=== PATIENT | female | born 1970 | race African-American/Black ===

== ENCOUNTER 2022-08-15 11:37 | Inpatient (IN) | payer MEDICARE, MEDICAID ==
[~2022-08-15] VITALS: Ht 167.6 cm; Wt 74.0 kg
[2022-08-15] VITALS (11 sets, daily range): BP systolic 82–223; BP diastolic 47–73
[~2022-08-15 11:37] MED LIST: ASPI81CH43 PO; CALC0.25 PO; CALC1TAB46 PO; CARV12.544 PO; NIFE10CA3 PO
[2022-08-15 12:33] LABS: Hemoglobin 8.9 g/dL (12.2-16.2)
[2022-08-15 12:35] LABS: Hematocrit 28.2 % (36.0-46.0); Mean Corpuscular Hemoglobin 25.6 pg (28.0-32.0); Mean Corpuscular Hgb Conc. 31.6 g/dL (32.0-36.0); Red Blood Cells 3.48 10^6/uL (4.0-5.20); Red Cell Distribution Width 19.4 % (11.8-14.3); White Blood Cell 2.3 10^3/uL (4.4-10.8)
[2022-08-15 12:40] LABS: Basophils % (manual) 0 (0.0-2.0); Blast Cells 0; Monocytes % (manual) 0 (0-12); Myelocytes % 0; Promyelocytes % 0; Reactive Lymphocytes 0
[2022-08-15 12:53] LABS: Lactic Acid w/Reflex 4.3 mmol/L (0.4-2.0)
[2022-08-15 13:10] LABS: Band Neutrophils % (manual) 5; Eosinophils % (manual) 2 (0-7); Lymphocytes % (manual) 5 (10.0-50.0); Metamyelocytes % 3
[2022-08-15] MEDS ORDERED: MORPHINE SULFATE INJ 2 MG/ml SYRG IV ONE (13:15)
[2022-08-15] MEDS ORDERED: ONDANSETRON HCL 4 MG/2 ML VIAL IV ONE (13:15)
[2022-08-15] MEDS ORDERED: DEXTROSE 10% 250 ML IV ONE ×2 (13:24→15:43)
[2022-08-15 13:45] LABS: Urine Bacteria FEW /hpf (None Seen); Urine Blood TRACE /uL (Negative); Urine Specific Gravity 1.016 (1.001-1.035); Urine WBC 12 /hpf (0 - 5)
[2022-08-15 13:53] LABS: Calcium 6.6 mg/dL (8.5-10.1)
[2022-08-15 13:59] LABS: Albumin 1.4 g/dL (3.4-5.0); BUN/Creatinine Ratio 14.4 (10.0-20.0); Bilirubin, Total 0.4 mg/dL (0.2-1.0); Magnesium 1.8 mg/dL (1.6-2.6); Total Protein 4.8 g/dL (6.4-8.2)
[2022-08-15 14:27] LABS: Potassium 5.7 mmol/L (3.5-5.1)
[2022-08-15] MEDS ORDERED: SODIUM BICARBONATE 8.4 % INJ 50ML VIAL IV ONE ×4 (14:45→22:45)
[2022-08-15] MEDS ORDERED: CALCIUM GLUC 1,000mg/50ml-NS 50 ML IV ONE ×3 (14:45→23:35)
[2022-08-15] MEDS ORDERED: DEXTROSE 10% 250 ML Bag IV ONE (15:45)
[2022-08-15] MEDS ORDERED: METOPROLOL SUCCINATE XL 50 MG TAB PO ONE (16:15)
[2022-08-15] MEDS ORDERED: methylPREDNISolone SOD SUCC 125 MG/2 ML VL IV ONE (16:15)
[2022-08-15] MEDS ORDERED: ALPRAZolam 0.25 MG TAB PO ONE (16:15)
[2022-08-15] MEDS ORDERED: MORPHINE SULFATE INJ 2 MG/ml SYRG IV PRN (16:30)
[2022-08-15] MEDS ORDERED: DEXTROSE (50%) 50ML SYRG IV PRN (16:30)
[2022-08-15] MEDS ORDERED: CEFEPIME 1GM/ 50ML 50 ML IV ONE (16:30)
[2022-08-15] MEDS ORDERED: NITROGLYCERIN 0.4 MG SL TAB SL PRN (16:30)
[2022-08-15] MEDS ORDERED: ALBUTEROL SULF 2.5 MG/0.5ML(0.5%) NEB SOLN NEB PRN (16:45)
[2022-08-15] MEDS ORDERED: VANCOMYCIN PER PHARMACY 0 MG IV SCH (17:00)
[2022-08-15] MEDS ORDERED: DEXTROSE 10% 1,000 ML IV ONE (17:45)
[2022-08-15] MEDS: ACCU-CHEK COMFORT CURVE STRIP VI SCH ×3 (18:00→23:05)
[2022-08-15] MEDS ORDERED: VANCOMYCIN 750mg/250ml 250 ML IV ONE (18:00)
[2022-08-15] MEDS: AZTREONAM 1 GM in D5W 5% 50 ML IV SCH (18:17)
[2022-08-15] MEDS: ALBUTEROL SULF 2.5 MG/0.5ML(0.5%) NEB SOLN NEB SCH ×2 (18:21→23:09)
[2022-08-15] MEDS: IPRATROPIUM BROM 0.5 MG/2.5ML INH SOL NEB SCH ×2 (18:22→23:09)
[2022-08-15 19:01] LABS: Hematocrit 25.1 % (36.0-46.0); Hemoglobin 8.2 g/dL (12.2-16.2)
[2022-08-15 19:02] LABS: Mean Corpuscular Hemoglobin 25.4 pg (28.0-32.0); Mean Corpuscular Hgb Conc. 32.8 g/dL (32.0-36.0); Mean Corpuscular Volume 77.3 fL (80.0-100.0); Red Blood Cells 3.24 10^6/uL (4.0-5.20); Red Cell Distribution Width 18.5 % (11.8-14.3)
[2022-08-15 19:20] LABS: BUN/Creatinine Ratio 14.9 (10.0-20.0); Calcium 6.4 mg/dL (8.5-10.1); Potassium 5.5 mmol/L (3.5-5.1); White Blood Cell 1.9 10^3/uL (4.4-10.8)
[2022-08-15 19:22] LABS: Basophils % (manual) 0 (0.0-2.0); Eosinophils % (manual) 0 (0-7); Lactic Acid w/Reflex 6.1 mmol/L (0.4-2.0); Promyelocytes % 0; Reactive Lymphocytes 0
[2022-08-15] MEDS: InsuLIN REG 1unit/0.01ml Soln (100units/ml) SC SCH (20:30)
[2022-08-15] MEDS ORDERED: BUMETANIDE 2.5mg/10ml (0.25 mg/ml) INJ IV ONE (21:00)
[2022-08-15] MEDS ORDERED: ATROPINE SULF 0.5 MG/5ML SYR ONE (21:22)
[2022-08-15] MEDS ORDERED: EPINEPHrine HCL 1 MG/10 ML SYRG ONE (21:23)
[2022-08-15] MEDS: EPINEPHrine HCL 250 ML IV SCH (21:45)
[2022-08-15] MEDS ORDERED: LINEZOLID 600MG/300ML 300 ML IV SCH (22:00)
[2022-08-15] MEDS: CARVEDILOL 12.5 MG TAB PO SCH (22:00)
[2022-08-15] MEDS ORDERED: AMIODARONE 450mg/250ml AE 250 ML IV ONE (22:05)
[2022-08-15] MEDS: NOREPINEPHRINE 8 MG/250ML KIT 250 ML IV SCH (22:30)
[2022-08-15] MEDS ORDERED: SODIUM BICARBONATE 8.4% INJ 50ML SYRINGE ONE (22:36)
[2022-08-15 22:40] LABS: Albumin 1.2 g/dL (3.4-5.0); Calcium 7.8 mg/dL (8.5-10.1); Hemoglobin 8.4 g/dL (12.2-16.2); Mean Corpuscular Hemoglobin 25.8 pg (28.0-32.0); Mean Corpuscular Hgb Conc. 32.4 g/dL (32.0-36.0)
[2022-08-15 22:41] LABS: Hematocrit 25.8 % (36.0-46.0); Mean Corpuscular Volume 79.8 fL (80.0-100.0); Red Blood Cells 3.23 10^6/uL (4.0-5.20); Red Cell Distribution Width 18.7 % (11.8-14.3); White Blood Cell 2.7 10^3/uL (4.4-10.8)
[2022-08-15 22:44] LABS: BUN/Creatinine Ratio 14.5 (10.0-20.0); Bilirubin, Total 0.4 mg/dL (0.2-1.0); Total Protein 4.1 g/dL (6.4-8.2)
[2022-08-15] MEDS ORDERED: SODIUM BICARBONATE 50ML VIAL 150 ML in SOD CHL 0.45% 1,000 ML IV SCH (22:45)
[2022-08-15 22:48] LABS: Potassium 6.2 mmol/L (3.5-5.1)
[2022-08-15] MEDS ORDERED: InsuLIN REG 1unit/0.01ml Soln (100units/ml) IV ONE (23:15)
[2022-08-15] MEDS ORDERED: DEXTROSE (50%) 50ML SYRG IV ONE (23:15)
[2022-08-15] MEDS ORDERED: SODIUM ZIRCONIUM CYCL 10 GM PAK PO ONE (23:15)
[2022-08-15] MEDS ORDERED: ALBUMIN 25% 100 ML IV ONE ×2 (23:15→23:27)
[2022-08-15] MEDS ORDERED: SODIUM ZIRCONIUM CYCL 10 GM PAK ONE (23:27)
[2022-08-15 23:34] LABS: Basophils % (manual) 0 (0.0-2.0); Eosinophils % (manual) 0 (0-7); Promyelocytes % 0; Reactive Lymphocytes 0
[2022-08-16] VITALS (116 sets, daily range): BP systolic 74–113; BP diastolic 49–86
[2022-08-16 00:08] LABS: Band Neutrophils % (manual) 31; Blast Cells 1; Lymphocytes % (manual) 5 (10.0-50.0); Metamyelocytes % 4; Monocytes % (manual) 1 (0-12); Myelocytes % 4
[2022-08-16 00:18] LABS: Band Neutrophils % (manual) 41; Blast Cells 1; Lymphocytes % (manual) 11 (10.0-50.0); Metamyelocytes % 4; Monocytes % (manual) 1 (0-12); Myelocytes % 2
[2022-08-16 01:09] LABS: BUN/Creatinine Ratio 14.3 (10.0-20.0); Calcium 7.1 mg/dL (8.5-10.1); Potassium 5.4 mmol/L (3.5-5.1)
[2022-08-16 01:11] LABS: Bilirubin, Total 0.5 mg/dL (0.2-1.0); Total Protein 3.7 g/dL (6.4-8.2)
[2022-08-16] MEDS: ACCU-CHEK COMFORT CURVE STRIP VI SCH ×10 (01:12→22:00)
[2022-08-16] MEDS: InsuLIN REG 1unit/0.01ml Soln (100units/ml) SC SCH ×6 (01:15→20:00)
[2022-08-16] MEDS ORDERED: SODIUM BICARBONATE 50ML VIAL 150 ML in SOD CHL 0.45% 1,000 ML IV SCH (02:00)
[2022-08-16] MEDS: ALBUTEROL SULF 2.5 MG/0.5ML(0.5%) NEB SOLN NEB SCH ×6 (02:24→21:59)
[2022-08-16] MEDS: IPRATROPIUM BROM 0.5 MG/2.5ML INH SOL NEB SCH ×6 (02:24→21:59)
[2022-08-16 03:10] LABS: Hematocrit 24.3 % (36.0-46.0); Mean Corpuscular Hemoglobin 25.5 pg (28.0-32.0); Mean Corpuscular Hgb Conc. 32.8 g/dL (32.0-36.0); Mean Corpuscular Volume 77.9 fL (80.0-100.0); Red Blood Cells 3.12 10^6/uL (4.0-5.20); Red Cell Distribution Width 18.9 % (11.8-14.3); White Blood Cell 2.7 10^3/uL (4.4-10.8)
[2022-08-16 03:24] LABS: Lactic Acid w/Reflex 8.2 mmol/L (0.4-2.0)
[2022-08-16 03:29] LABS: Basophils % (manual) 0 (0.0-2.0); Blast Cells 0; Eosinophils % (manual) 0 (0-7); Metamyelocytes % 0; Myelocytes % 0; Promyelocytes % 0; Reactive Lymphocytes 0
[2022-08-16 03:30] LABS: Albumin 1.4 g/dL (3.4-5.0); BUN/Creatinine Ratio 14.3 (10.0-20.0); Calcium 7.2 mg/dL (8.5-10.1); Potassium 5.4 mmol/L (3.5-5.1)
[2022-08-16 03:33] LABS: Bilirubin, Total 0.7 mg/dL (0.2-1.0); Total Protein 4.2 g/dL (6.4-8.2)
[2022-08-16] MEDS ORDERED: EPINEPHrine HCL 250 ML IV ONE (05:13)
[2022-08-16] MEDS ORDERED: ATROPINE SULF 1 MG/10ml SYR IV ONE (05:45)
[2022-08-16] MEDS ORDERED: ASPirin 81 mg TAB PO SCH (07:00)
[2022-08-16 07:12] LABS: Band Neutrophils % (manual) 38; Lymphocytes % (manual) 17 (10.0-50.0); Monocytes % (manual) 5 (0-12)
[2022-08-16] MEDS ORDERED: MIDAZOLAM DRIP 50 mg/50mL 50 ML IV ONE (07:31)
[2022-08-16] MEDS: MIDAZOLAM DRIP 50 mg/50mL 50 ML IV SCH (07:40)
[2022-08-16] MEDS: PROPOFOL 100 ML IV SCH ×3 (07:45→18:02)
[2022-08-16] MEDS: fentaNYL Drip 2500mCg/250mlNS 250 ML IV SCH (08:20)
[2022-08-16] MEDS: AZTREONAM 1 GM in D5W 5% 50 ML IV SCH (08:35)
[2022-08-16] MEDS ORDERED: CEFEPIME 1GM/ 50ML 50 ML IV SCH (10:00)
[2022-08-16] MEDS ORDERED: NIFEdipine 10 MG CAP PO SCH (10:00)
[2022-08-16] MEDS ORDERED: CALCITRIOL 0.25 MCG CAP PO SCH (10:00)
[2022-08-16] MEDS: CARVEDILOL 12.5 MG TAB PO SCH (10:00)
[2022-08-16] MEDS ORDERED: VANCOMYCIN 750mg/250ml 250 ML IV ONE (10:15)
[2022-08-16] MEDS: ALBUMIN 25% 100 ML IV SCH ×2 (11:25→18:47)
[2022-08-16 11:26] LABS: Phosphorus 6.3 mg/dL (2.5-4.90); Uric Acid 10.6 mg/dL (2.6-6.0)
[2022-08-16] MEDS: EPINEPHrine HCL 250 ML IV SCH (12:27)
[2022-08-16] MEDS: SODIUM BICARBONATE 50ML VIAL 50 ML in SOD CHL 0.45% 1,000 ML IV SCH (14:40)
[2022-08-16] MEDS ORDERED: MEROPENEM 1GM IVPB 100 ML IV ONE (15:30)
[2022-08-16] MEDS ORDERED: PANTOPRAZOLE 40 MG/10 ML VIAL INJ IV ONE (15:30)
[2022-08-16] MEDS ORDERED: MICAFUNGIN SODIUM 100 MG in SODIUM CHL 0.9% 100 ML IV ONE (15:30)
[2022-08-16] MEDS: NOREPINEPHRINE 8 MG/250ML KIT 250 ML IV SCH (15:40)
[2022-08-16] MEDS ORDERED: MEROPENEM 500MG IVPB 50 ML IV SCH (15:49)
[2022-08-16] MEDS: PHENYLEPHRINE INJ 80 MG in SODIUM CHL 0.9% 242 ML IV SCH ×2 (16:00→17:59)
[2022-08-16] MEDS ORDERED: HEPARIN SODIUM (PORCINE) 5000 UNITS/ML 1ML VIAL IV ONE (16:15)
[2022-08-16] MEDS: NOREPINEPHRINE BITARTRATE 32 MG in SODIUM CHL 0.9% 218 ML IV SCH (17:24)
[2022-08-16] MEDS: HEPARIN DRIP/D5W 100UNITS/ML 250 ML IV SCH (17:46)
[2022-08-16] MEDS: MEROPENEM 500MG IVPB 50 ML IV SCH (18:48)
[2022-08-16 19:05] LABS: INR 1.41 (0.9-1.15)
[2022-08-16 19:13] LABS: Partial Thromboplastin Time 88.6 sec (24.6-33.4)
[2022-08-16 21:17] LABS: Alcohol, Urine < 3.0 mg/dL (0-10); Amphetamine Screen, Urine NEGATIVE (NEGATIVE); Barbiturate Scree,Urine NEGATIVE (NEGATIVE); Benzodiazephine Screen, Urine POSITIVE (NEGATIVE); Cannabinoid Screen, Urine NEGATIVE (NEGATIVE); Cocaine Screen, Urine NEGATIVE (NEGATIVE)
[2022-08-16 21:25] LABS: Phencyclidine Screen, Urine NEGATIVE (NEGATIVE)
[2022-08-16] MEDS ORDERED: DEXTROSE 10% 250 ML IV ONE (21:25)
[2022-08-16 21:27] LABS: Protein, Urine 255.3 mg/dL (0.0-11.9)
[2022-08-16] MEDS ORDERED: MEROPENEM 1GM IVPB 100 ML IV SCH (22:00)
[2022-08-16 22:02] LABS: Opiate Scree,Urine POSITIVE (NEGATIVE)
[2022-08-17] VITALS (116 sets, daily range): BP systolic 71–132; BP diastolic 19–76
[2022-08-17 00:43] LABS: INR 1.94 (0.9-1.15)
[2022-08-17 00:46] LABS: Partial Thromboplastin Time 22.2 sec (24.6-33.4)
[2022-08-17] MEDS: HEPARIN DRIP/D5W 100UNITS/ML 250 ML IV SCH (01:02)
[2022-08-17] MEDS: SODIUM BICARBONATE 50ML VIAL 50 ML in SOD CHL 0.45% 1,000 ML IV SCH ×2 (01:13→10:02)
[2022-08-17] MEDS: ALBUTEROL SULF 2.5 MG/0.5ML(0.5%) NEB SOLN NEB SCH ×7 (02:13→22:51)
[2022-08-17] MEDS: IPRATROPIUM BROM 0.5 MG/2.5ML INH SOL NEB SCH ×6 (02:13→22:51)
[2022-08-17] MEDS: ALBUMIN 25% 100 ML IV SCH (02:19)
[2022-08-17] MEDS: ACCU-CHEK COMFORT CURVE STRIP VI SCH ×5 (02:19→20:21)
[2022-08-17] MEDS ORDERED: DEXTROSE 10% 250 ML IV ONE ×2 (02:26→20:16)
[2022-08-17] MEDS ORDERED: ROSU20TA14 PO (04:58)
[2022-08-17] MEDS ORDERED: AMIO200T33 PO (05:03)
[2022-08-17] MEDS ORDERED: FLUC200T50 PO (05:03)
[2022-08-17] MEDS ORDERED: PANT40TA2 PO (05:03)
[2022-08-17] MEDS ORDERED: AMLO-489 PO (05:03)
[2022-08-17] MEDS ORDERED: METO-289 PO (05:03)
[2022-08-17] MEDS ORDERED: PRED20TA2 PO (05:03)
[2022-08-17] MEDS ORDERED: APIX5TAB PO (05:03)
[2022-08-17] MEDS ORDERED: TACR1TAB2 PO (05:03)
[2022-08-17] MEDS ORDERED: MYCO500T PO (05:03)
[2022-08-17] MEDS ORDERED: CALC0.5C PO (05:03)
[2022-08-17] MEDS: MEROPENEM 500MG IVPB 50 ML IV SCH ×2 (05:12→17:33)
[2022-08-17] MEDS: InsuLIN REG 1unit/0.01ml Soln (100units/ml) SC SCH ×6 (05:15→20:00)
[2022-08-17] MEDS: fentaNYL Drip 2500mCg/250mlNS 250 ML IV SCH (05:18)
[2022-08-17 05:31] LABS: White Blood Cell 2.6 10^3/uL (4.4-10.8)
[2022-08-17 05:33] LABS: Hematocrit 21.7 % (36.0-46.0); Hemoglobin 7.4 g/dL (12.2-16.2); Mean Corpuscular Hemoglobin 26.4 pg (28.0-32.0); Mean Corpuscular Hgb Conc. 34.4 g/dL (32.0-36.0); Mean Corpuscular Volume 76.8 fL (80.0-100.0); Red Blood Cells 2.82 10^6/uL (4.0-5.20); Red Cell Distribution Width 18.9 % (11.8-14.3)
[2022-08-17 06:07] LABS: Basophils % (manual) 0 (0.0-2.0); Blast Cells 0; Metamyelocytes % 0; Myelocytes % 0; Promyelocytes % 0; Reactive Lymphocytes 0
[2022-08-17] MEDS ORDERED: SODIUM CHL 0.9% 1000 ML BAG XX ONE (07:00)
[2022-08-17] MEDS: NOREPINEPHRINE BITARTRATE 32 MG in SODIUM CHL 0.9% 218 ML IV SCH (07:33)
[2022-08-17 07:41] LABS: INR 1.76 (0.9-1.15)
[2022-08-17] MEDS: MIDAZOLAM DRIP 50 mg/50mL 50 ML IV SCH (07:45)
[2022-08-17 08:09] LABS: Partial Thromboplastin Time 20.7 sec (24.6-33.4)
[2022-08-17] MEDS ORDERED: HEPARIN SODIUM (PORCINE) 5000 UNITS/ML 1ML VIAL IV ONE (08:15)
[2022-08-17 08:41] LABS: Band Neutrophils % (manual) 45; Eosinophils % (manual) 2 (0-7); Lymphocytes % (manual) 5 (10.0-50.0); Monocytes % (manual) 4 (0-12)
[2022-08-17] MEDS ORDERED: HEPARIN DRIP/D5W 100UNITS/ML 250 ML IV SCH (08:45)
[2022-08-17 08:59] LABS: Anion Gap 15 (5-15); BUN/Creatinine Ratio 14.4 (10.0-20.0); Blood Urea Nitrogen 76 mg/dL (7-18); Carbon Dioxide 15 mmol/L (21-32); Chloride 96 mmol/L (98-107); GFR African American 11 mL/min; GFR Non-African American 9 mL/min; Glucose 86 mg/dL (74-106); Sodium 126 mmol/L (136-145)
[2022-08-17 09:08] LABS: Alanine Aminotransferase 30 U/L (13-56); Alkaline Phosphatase 191 U/L (45-117); Aspartate Aminotransferase 94 U/L (15-37); Bilirubin, Total 0.7 mg/dL (0.2-1.0); Total Protein 4.2 g/dL (6.4-8.2)
[2022-08-17 09:13] LABS: Calcium 5.6 mg/dL (8.5-10.1); Potassium 5.8 mmol/L (3.5-5.1)
[2022-08-17] MEDS ORDERED: PANTOPRAZOLE 40 MG/10 ML VIAL INJ IV SCH (10:00)
[2022-08-17] MEDS ORDERED: MICAFUNGIN SODIUM 100 MG in SODIUM CHL 0.9% 100 ML IV SCH (10:00)
[2022-08-17] MEDS: ALBUMIN 25% 100 ML IV PRN ×3 (10:55→13:52)
[2022-08-17] MEDS ORDERED: ALBUMIN 25% 100 ML IV ONE ×2 (10:57→11:07)
[2022-08-17] MEDS: CALCIUM ACETATE 667 MG CAP NG SCH ×2 (12:50→21:21)
[2022-08-17] MEDS: PHENYLEPHRINE INJ 80 MG in SODIUM CHL 0.9% 242 ML IV SCH ×2 (13:02→22:37)
[2022-08-17] MEDS ORDERED: AMIODARONE 450mg/250ml AE 250 ML IV ONE (13:29)
[2022-08-17] MEDS: AMIODARONE 450mg/250ml AE 250 ML IV SCH ×2 (13:36→18:46)
[2022-08-17] MEDS: VASOPRESSIN 20 UNITS in SODIUM CHL 0.9% 99 ML IV SCH ×2 (13:45→22:40)
[2022-08-17] MEDS ORDERED: EPINEPHrine HCL 1 MG/10 ML SYRG IV ONE (13:58)
[2022-08-17] MEDS ORDERED: DEXTROSE (50%) 50ML SYRG IV ONE (13:58)
[2022-08-17] MEDS ORDERED: CALCIUM CHLOR(10%) 100MG/ML 10ML SYRINGE IV ONE (13:58)
[2022-08-17] MEDS ORDERED: SODIUM BICARBONATE 8.4% INJ 50ML SYRINGE IV ONE (13:58)
[2022-08-17] MEDS ORDERED: AMIODARONE HCL (50 MG/ ML) 3 ML VIAL IV ONE (13:58)
[2022-08-17] MEDS ORDERED: AMIODARONE HCL 150 MG in D5W 5% 100 ML IV ONE (14:30)
[2022-08-17] MEDS ORDERED: SODIUM BICARBONATE 50ML VIAL 75 ML in D5W 5% 1,000 ML IV SCH (14:45)
[2022-08-17] MEDS ORDERED: ARGATROBAN 250 MG in SODIUM CHL 0.9% 248.5 ML IV SCH (15:30)
[2022-08-17] MEDS ORDERED: VANCOMYCIN 500 MG in D5W 5% 100 ML IV ONE (18:30)
[2022-08-17] MEDS ORDERED: AMIODARONE 450mg/250ml AE 250 ML IV SCH (19:45)
[2022-08-17] MEDS ORDERED: EPOETIN ALFA-EPBX 10,000 UNIT/1ML VIAL SC ONE (21:00)
[2022-08-17] MEDS ORDERED: TACROLIMUS 1 MG CAP PO SCH (22:00)
[2022-08-17] MEDS ORDERED: SODIUM BICARBONATE 50ML VIAL 150 ML in D5W 5% 1,000 ML IV SCH ×4 (22:15)
[2022-08-17] MEDS ORDERED: SODIUM BICARBONATE 8.4 % INJ 50ML VIAL IV ONE ×2 (22:15→22:18)
[2022-08-17] MEDS: EPINEPHrine HCL 250 ML IV SCH (22:45)
[2022-08-17] MEDS ORDERED: DOPamine 1600MCG/ML D5W 250 ML IV SCH (22:45)
[2022-08-18] VITALS (26 sets, daily range): BP systolic 68–138; BP diastolic 13–74
[2022-08-18] MEDS: InsuLIN REG 1unit/0.01ml Soln (100units/ml) SC SCH
[2022-08-18] MEDS: ACCU-CHEK COMFORT CURVE STRIP VI SCH (02:03)
[2022-08-18] MEDS: IPRATROPIUM BROM 0.5 MG/2.5ML INH SOL NEB SCH (02:29)
[2022-08-18] MEDS: ALBUTEROL SULF 2.5 MG/0.5ML(0.5%) NEB SOLN NEB SCH (02:29)
[2022-08-18 03:22] LABS: White Blood Cell 2.9 10^3/uL (4.4-10.8)
[2022-08-18 03:24] LABS: Hematocrit 15.1 % (36.0-46.0); Mean Corpuscular Hemoglobin 25.8 pg (28.0-32.0); Mean Corpuscular Hgb Conc. 31.8 g/dL (32.0-36.0); Mean Corpuscular Volume 81.3 fL (80.0-100.0); Red Blood Cells 1.86 10^6/uL (4.0-5.20); Red Cell Distribution Width 19.7 % (11.8-14.3)
[2022-08-18 03:31] LABS: Hemoglobin 4.8 g/dL (12.2-16.2)
[2022-08-18 03:33] LABS: Basophils % (manual) 0 (0.0-2.0); Blast Cells 0; Metamyelocytes % 0; Myelocytes % 0; Promyelocytes % 0; Reactive Lymphocytes 0
[2022-08-18] MEDS ORDERED: DEXTROSE 10% 250 ML IV ONE (03:38)
[2022-08-18 03:49] LABS: Albumin 1.7 g/dL (3.4-5.0); BUN/Creatinine Ratio 13.4 (10.0-20.0); Potassium 5.1 mmol/L (3.5-5.1)
[2022-08-18 03:52] LABS: Bilirubin, Total 0.7 mg/dL (0.2-1.0); Total Protein 3.1 g/dL (6.4-8.2)
[2022-08-18] MEDS ORDERED: SODIUM BICARBONATE 8.4 % INJ 50ML VIAL IV ONE (03:53)
[2022-08-18 04:05] LABS: Partial Thromboplastin Time 26.5 sec (24.6-33.4)
[2022-08-18 04:06] LABS: INR > 8.0 (0.9-1.15)
[2022-08-18 07:26] LABS: Band Neutrophils % (manual) 39; Eosinophils % (manual) 1 (0-7); Lymphocytes % (manual) 4 (10.0-50.0); Monocytes % (manual) 3 (0-12)
[2022-08-19 13:06] LABS: Hepatitis A Ab IgM Negative; Hepatitis B Core IgM Negative
[2022-08-19 13:07] LABS: Hepatitis C Antibody Negative (Negative)
== END 2022-08-18 16:23 | DRG 871 ==
LOC: ER 11:37 → EDBD 11:37 → TELE 16:31 → ICU WEST 22:18
PROVIDERS: ADMIT Nurse Practitioner Family; ATTEND Internal Medicine
PROC: 5A09357 Assistance with Respiratory Ventilation, Less than 24 Consecutive Hours, Continuous Positive Airway Pressure (ICD-10-PCS; 2022-08-15)
PROC: 5A12012 Performance of Cardiac Output, Single, Manual (ICD-10-PCS; 2022-08-15)
PROC: 5A1D70Z Performance of Urinary Filtration, Intermittent, Less than 6 Hours Per Day (ICD-10-PCS; principal; 2022-08-16)
PROC: 5A1945Z Respiratory Ventilation, 24-96 Consecutive Hours (ICD-10-PCS; 2022-08-16)
PROC: 0BH17EZ Insertion of Endotracheal Airway into Trachea, Via Natural or Artificial Opening (ICD-10-PCS; 2022-08-16)
DX: A41.9 Sepsis, unspecified organism (principal); E43 Unspecified severe protein-calorie malnutrition; J96.01 Acute respiratory failure with hypoxia; R65.21 Severe sepsis with septic shock; N18.6 End stage renal disease; N17.0 Acute kidney failure with tubular necrosis; G93.41 Metabolic encephalopathy; I13.2 Hypertensive heart and chronic kidney disease with heart failure and with stage 5 chronic kidney disease, or end stage renal disease; E87.1 Hypo-osmolality and hyponatremia; D61.818 Other pancytopenia; T86.19 Other complication of kidney transplant; H54.62 Unqualified visual loss, left eye, normal vision right eye; E89.0 Postprocedural hypothyroidism; I46.9 Cardiac arrest, cause unspecified; E87.5 Hyperkalemia; E88.09 Other disorders of plasma-protein metabolism, not elsewhere classified; Y83.0 Surgical operation with transplant of whole organ as the cause of abnormal reaction of the patient, or of later complication, without mention of misadventure at the time of the procedure; I48.91 Unspecified atrial fibrillation; Z86.711 Personal history of pulmonary embolism; Z86.718 Personal history of other venous thrombosis and embolism; Z79.01 Long term (current) use of anticoagulants; Z99.2 Dependence on renal dialysis; Z79.899 Other long term (current) drug therapy; I69.30 Unspecified sequelae of cerebral infarction; Z90.49 Acquired absence of other specified parts of digestive tract; Z88.1 Allergy status to other antibiotic agents; Z88.0 Allergy status to penicillin; Z98.51 Tubal ligation status; Z68.26 Body mass index [BMI] 26.0-26.9, adult
CPT/HCPCS: 36415; 36416; 36600; 71045; 71250; 74176; 80048; 80053; 80074; 80202; 80307; 81001; 82570; 82805; 82962; 83036; 83605; 83735; 83880; 84100; 84132; 84156; 84300; 84484; 84550; 85007; 85027; 85610; 85730; 87040; 87070; 87077; 87081; 87086; 87186; 87205; 90935; 93005; 93306; 93971; 94002; 94003; 94640; 94660; 95819; 96365; 96375; C9113; G0378; J0171; J0461; J2185; J2248; J2250; J2405; J2704; J7060; J7507; P9047